=== PATIENT | female | born 1985 | race Caucasian/White ===

== ENCOUNTER 2016-12-15 14:26 | Inpatient (IN) ==
--- NOTE | 2016-12-15 15:36 | Emergency Department Note ---
Disposition Clinical Impression: Protrusion of lumbar intervertebral disc, Loss of feeling or sensation Disposition: Admitted As Inpatient Condition: Fair General Adult HPI - General Chief complaint: ED Back Pain/Injury Stated complaint: Back pain/R leg pain Time Seen by Provider: 12/15/16 15:28 Source: patient Limitations: no limitations - History of Present Illness Pain Scale: 10 - Related Data Home Medications Medication Instructions Recorded Confirmed Estradiol 2 mg PO DAILY 12/15/16 12/15/16 Ibuprofen [Motrin] 400 mg PO Q6HR PRN 12/15/16 12/15/16 Previous Rx's Medication Instructions Recorded OxyCODONE/APAP 5/325 [Percocet 1 each PO Q6HR PRN #12 tablet 12/09/16 5/325 MG] Allergies Allergy/AdvReac Type Severity Reaction Status Date / Time No Known Allergies Allergy Verified 12/15/16 14:49 Past Medical History - Past Medical History Medical history: Reports: GERD, migraine, other Psychiatric history: Reports: depression 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 - Social History Smoking Status: Never smoker Smokeless Tobacco Status: No Alcohol use: Reports: none Drug use: Reports: none Physical Exam - General Limitations: no limitations General appearance: alert Course Vital Signs Temperature 98 F 12/15/16 14:49 Pulse Rate 85 12/15/16 14:49 Respiratory Rate 20 12/15/16 14:49 Blood Pressure 143/84 12/15/16 14:49 O2 Sat by Pulse Oximetry 96 12/15/16 14:49 Temperature 98.1 F 12/15/16 19:51 Pulse Rate 74 12/15/16 19:51 Respiratory Rate 16 12/15/16 19:51 Blood Pressure 117/75 12/15/16 19:51 O2 Sat by Pulse Oximetry 97 12/15/16 19:51 Oxygen Delivery Oxygen Delivery Room Air Medical Decision Making - Lab Data Result diagrams: 12/15/16 16:12 12/15/16 16:12 Lab Results 12/15/16 12/15/16 Range/Units 16:12 16:12 WBC 12.4 H (4.3-11.1) K/mcL RBC 4.82 (3.82-4.97) M/mcL Hgb 14.0 (11.5-15.4) g/dL Hct 41.0 (35.3-44.9) % MCV 85.1 (83.0-100.0) fL MCH 29.0 (28.0-33.3) pg MCHC 34.1 (31.6-35.5) g/dL RDW 12.6 (11.5-14.5) % Plt Count 368 (140-400) K/mcL MPV 9.9 (9.4-12.4) fL Immature Gran % 0.3 (0-4) % Seg Neutrophils % 74.9 % Lymphocytes % 19.7 % Monocytes % 4.6 % Eosinophils % 0.2 % Basophils % 0.3 % Neutrophils # 9.3 H (1.6-8.9) K/mcL Lymphocytes # 2.4 (0.6-4.6) K/mcL Monocytes # 0.6 (0.0-1.3) K/mcL Eosinophils # 0.0 (0.0-0.6) K/mcL Basophils # 0.0 (0.0-0.2) K/mcL Sodium 141 (136-145) mEq/L Potassium 4.0 (3.5-4.5) mEq/L Chloride 105 (98-109) mEq/L Carbon Dioxide 22 (19-29) mEq/L BUN 9 (7-20) mg/dL Creatinine 0.75 (0.57-1.11) mg/dL Est GFR ( Amer) > 60 (> 60) Est GFR (Non-Af Amer) > 60 (> 60) BUN/Creatinine Ratio 12 (6-26) Glucose 96 (70-99) mg/dL Calculated Osmolality 291 (280-300) Calcium 9.9 (8.6-10.8) mg/dL Attestation Statement - Attestation Attestation: I examined this patient and my medical decision-making was reviewed with the Resident Physician. I agree with the documented findings, disposition and treatment plan as described except to the extent set forth below. [id number] time provided Patient seen in conjunction with Dr. Escobedo. She complains of right back and buttock pain radiating down her right lower extremity. She had an outpatient MRI 3 days ago-the transcribe results of which I have reviewed. Patient appears very uncomfortable on exam.
[2016-12-15] MEDS ORDERED: 0.9 % Sodium Chloride 1,000 ML IVC ONE (15:46)
[2016-12-15] MEDS ORDERED: Ondansetron 4 MG/2 ML VIAL IVP PRN ×2 (15:46→17:13)
[2016-12-15] MEDS ORDERED: *HR* HYDROmorphone (PF) 1 MG/ML SYRINGE IVP ONE ×2 (15:46→17:15)
[2016-12-15] MEDS ORDERED: Dexamethasone 4 MG/ML VIAL IVP PRN (15:53)
[2016-12-15] MEDS ORDERED: Ketorolac 15 MG/ML VIAL IVP ONE (15:53)
[2016-12-15] MEDS ORDERED: Ondansetron 4 MG/2 ML VIAL IVP ONE (15:55)
--- NOTE | 2016-12-15 16:01 | Emergency Department Note ---
Disposition Clinical Impression: Protrusion of lumbar intervertebral disc, Loss of feeling or sensation Disposition: Admitted As Inpatient Condition: Fair Time of Disposition: 16:03 General Adult HPI - General Chief complaint: ED Back Pain/Injury Stated complaint: Back pain/R leg pain Time Seen by Provider: 12/15/16 15:28 Source: patient Limitations: no limitations Nursing Notes Reviewed: Yes Vital Signs Reviewed: Yes - History of Present Illness HPI Narrative: Patient is a 31-year-old female brought in for weakness and pain to the right lower extremity and right hip. Patient was of lower back pain and loss of sensation to her groin area. Patient states when she wipes urine that it feels different. Patient states that she also has incontinence of urine. Pain Scale: 10 - Related Data Home Medications Medication Instructions Recorded Confirmed Estradiol 2 mg PO DAILY 12/15/16 12/15/16 Ibuprofen [Motrin] 400 mg PO Q6HR PRN 12/15/16 12/15/16 Previous Rx's Medication Instructions Recorded OxyCODONE/APAP 5/325 [Percocet 1 each PO Q6HR PRN #12 tablet 12/09/16 5/325 MG] Allergies Allergy/AdvReac Type Severity Reaction Status Date / Time No Known Allergies Allergy Verified 12/15/16 14:49 All systems ED: reviewed and negative except as stated. Review of Systems: As Per HPI Constitutional: Reports: weakness. Denies: fever, chills Eyes: Denies: vision change ENT ED: Denies: congestion Cardiovascular: Denies: chest pain, palpitations, dyspnea on exertion Respiratory: Denies: cough, dyspnea Gastrointestinal: Reports: nausea. Denies: abdominal pain, vomiting, diarrhea Genitourinary: Reports: other (Incontinence: urinary) Musculoskeletal: Reports: back pain Neurological: Reports: paresthesias (Saddle). Denies: headache, weakness Psychiatric: Reports: anxiety Endocrine: Denies: fatigue Past Medical History - Past Medical History Attestation: Yes The following information was validated with the patient. 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 Patient appears very uncomfortable and is lying leaned over to the left side to take pressure off her right side. Patient has paraspinal tenderness bilaterally along thoracic and lumbar spine. Patient has exquisite tenderness to the right gluteal region. Patient has decreased sensation below the knee on her right side. Patient has restriction of range of motion secondary to pain - General Limitations: no limitations General appearance: alert - Head Head exam: atraumatic, normocephalic, normal inspection - Eye Eye exam: Present: normal appearance, PERRL, EOMI - ENT ENT exam: normal exam, normal oropharynx, mucous membranes moist - Neck Neck exam: Present: normal inspection, full ROM, trachea midline - Chest Chest inspection: Present: normal inspection, symmetric chest wall rise - Cardiovascular Cardiovascular exam: Present: regular rate, normal rhythm, normal heart sounds - Abdominal Exam Abdominal exam: Present: soft, Non-Tender. Absent: tenderness, distention, guarding, rebound, rigidity Course - Consultations Consultation #1: Dr. Nicole was consulted and he advised to admit to medicine for pain control and he will see patient once admitted and evaluate. Time: 15:56 Vital Signs Temperature 98 F 12/15/16 14:49 Pulse Rate 85 12/15/16 14:49 Respiratory Rate 20 12/15/16 14:49 Blood Pressure 143/84 12/15/16 14:49 O2 Sat by Pulse Oximetry 96 12/15/16 14:49 Temperature 98.0 F 12/15/16 17:47 Pulse Rate 73 12/15/16 17:47 Respiratory Rate 16 12/15/16 17:47 Blood Pressure 131/80 12/15/16 17:47 O2 Sat by Pulse Oximetry 93 12/15/16 17:47 Oxygen Delivery Oxygen Delivery Room Air Medical Decision Making - [facility] Narrative Medical decision making narrative: Patient with complaints of left lower cavity weakness, pain and saddle paresthesias concerning for cauda equina. Patient has MRI on file which shows lumbar radiculopathy with foraminal stenosis. Patient states she has been having urinary incontinence as well. Spoke to Dr. Pantoja of orthopedic spine surgery who states to admit patient to medicine and he will evaluate patient once she is admitted. Patient's pain has been placed on the control with Dilaudid 1 mg 2, patient has been given Zofran for nausea. Patient understands and agrees to treatment and care. Patient agrees to admission. CBC shows WBC of 12.4 the patient is afebrile and not tachycardic or tachypneic. This may be stress induced. and BMP show no abnormalities. Patient was accepted for admission by Dr. Johnson the Hospitalist - Medical Records Medical records reviewed: Yes I reviewed the patient's medical records. MR/MR lumbar spine wo con IMPRESSION: There is a large disc protrusion toward the right at L4-5 causing stenosis of the thecal sac and narrowing of the right neural foramen greater than the left as discussed in detail above. - Lab Data Result diagrams: 12/15/16 16:12 12/15/16 16:12 Lab Results 12/15/16 12/15/16 Range/Units 16:12 16:12 WBC 12.4 H (4.3-11.1) K/mcL RBC 4.82 (3.82-4.97) M/mcL Hgb 14.0 (11.5-15.4) g/dL Hct 41.0 (35.3-44.9) % MCV 85.1 (83.0-100.0) fL MCH 29.0 (28.0-33.3) pg MCHC 34.1 (31.6-35.5) g/dL RDW 12.6 (11.5-14.5) % Plt Count 368 (140-400) K/mcL MPV 9.9 (9.4-12.4) fL Immature Gran % 0.3 (0-4) % Seg Neutrophils % 74.9 % Lymphocytes % 19.7 % Monocytes % 4.6 % Eosinophils % 0.2 % Basophils % 0.3 % Neutrophils # 9.3 H (1.6-8.9) K/mcL Lymphocytes # 2.4 (0.6-4.6) K/mcL Monocytes # 0.6 (0.0-1.3) K/mcL Eosinophils # 0.0 (0.0-0.6) K/mcL Basophils # 0.0 (0.0-0.2) K/mcL Sodium 141 (136-145) mEq/L Potassium 4.0 (3.5-4.5) mEq/L Chloride 105 (98-109) mEq/L Carbon Dioxide 22 (19-29) mEq/L BUN 9 (7-20) mg/dL Creatinine 0.75 (0.57-1.11) mg/dL Est GFR ( Amer) > 60 (> 60) Est GFR (Non-Af Amer) > 60 (> 60) BUN/Creatinine Ratio 12 (6-26) Glucose 96 (70-99) mg/dL Calculated Osmolality 291 (280-300) Calcium 9.9 (8.6-10.8) mg/dL
[2016-12-15 16:22] LABS: Basophils % 0.3 %; Eosinophils % 0.2 %; Immature Granulocytes % 0.3 % (0-4); Lymphocytes # 2.4 K/mcL (0.6-4.6); Lymphocytes % 19.7 %; Mean Corpuscular HGB Conc 34.1 g/dL (31.6-35.5); Mean Corpuscular Volume 85.1 fL (83.0-100.0); Mean Platelet Volume 9.9 fL (9.4-12.4); Monocytes # 0.6 K/mcL (0.0-1.3); Monocytes % 4.6 %; Neutrophils # 9.3 K/mcL (1.6-8.9); Platelet Count 368 K/mcL (140-400); Red Blood Count 4.82 M/mcL (3.82-4.97); Red Cell Distribution Width 12.6 % (11.5-14.5); Segmented Neutrophils % 74.9 %
[2016-12-15 16:32] LABS: BUN/Creatinine Ratio 12 (6-26); Blood Urea Nitrogen 9 mg/dL (7-20); Calcium 9.9 mg/dL (8.6-10.8); Carbon Dioxide 22 mEq/L (19-29); Chloride 105 mEq/L (98-109); Glucose 96 mg/dL (70-99); Osmolality,Calculated 291 (280-300); Sodium 141 mEq/L (136-145); eGFR For African Americans > 60 (> 60); eGFR For Non-African Americans > 60 (> 60)
[2016-12-15] MEDS ORDERED: Acetaminophen 325 MG TABLET PO PRN (17:13)
[2016-12-15] MEDS ORDERED: Naloxone 0.4 MG/ML INJ IVP PRN (17:13)
--- NOTE | 2016-12-15 17:25 | Internal Med History&Physical ---
Date of Encounter: 12/15/16 Time of Encounter: 17:23 Assessment and Plan (1) Protrusion of lumbar intervertebral disc Current visit: Yes Status: Acute Intractable back pain with residual right lower extremity weakness secondary to severe disc protrusion and narrowing of the right neural foramen more than the left. Worrisome for cord compression Urgent neurosurgery consult, nothing by mouth for possible surgical procedure Nilotinib for pain, IV fluids Protonix for GI prophylaxis and sequential compression devices for DVT prophylaxis. The patient will be admitted as inpatient, expected stay more than midnights. Full code. Time spent on this admission 40 minutes (2) Migraines Current visit: Yes Status: Acute Stable Qualifiers: Migraine type: unspecified Status migrainosus presence: without status migrainosus Intractability: not intractable Qualified Code(s): G43.909 - Migraine, unspecified, not intractable, without status migrainosus (3) Intractable back pain Current visit: Yes Status: Acute As stated above (4) Loss of feeling or sensation Current visit: Yes Status: Acute Internal Medicine - H&P: HPI Chief complaint: right leg/back pain Admitted From: Emergency Dept History of present illness: Ms. Dickinson is a 31 year old female with a past medical history migraines, depression, came to the emergency room complaining of severe right lower extremity pain and back pain that started more than a month ago. The patient has symptoms such as diminished sensitivity below the knee and abnormal sensitivity in her groin area and severe weakness due to intractable pain. Also , she says she had some urinary dribbling but no fecal incontinence. An MRI performed on December 12 showed a large disc protrusion on the right side of L4 in L5 causing stenoses of the thecal sac/narrowing of the right neural foramen more than the left. They are physician paged Dr. Pantoja who will see the patient urgently. White blood cell count is 12.4, complains of some chills and nausea. Received Dilaudid and has been taking Percocet at home but partially control her pain up until today. Past Med Surg Social Fam HX - Past Medical History Medical history: GERD, migraine, other ( depression) Psychiatric history: depression - Past Surgical History Surgical History: other (Breast reduction) - Social History Smoking Status: Never smoker Smokeless Tobacco Status: No Alcohol use: none Drug use: none - Additional Family History Additional family history: Maternal grandfather with diabetes, maternal grandmother with ovarian cancer Internal Medicine - H&P: Meds OxyCODONE/APAP 5/325 [Percocet 5/325 MG] 1 each PO Q6HR PRN #12 tablet 12/09/16 [Rx] Estradiol 2 mg PO DAILY 12/15/16 [History] Ibuprofen [Motrin] 400 mg PO Q6HR PRN 12/15/16 [History] 3 Allergy/AdvReac Type Severity Reaction Status Date / Time No Known Allergies Allergy Verified 12/15/16 14:49 All Systems PM: A 10-system review of systems was performed and is negative for pertinent findings except as documented above in the HPI. Review of systems: Complains of chills and nausea, severe right lower extremity pain and some weakness, other systems out of the 10 reviewed were negative - Constitutional Vitals: Temp Pulse Resp BP Pulse Ox 98 F 90 18 129/80 96 12/15/16 14:49 12/15/16 16:05 12/15/16 17:14 12/15/16 17:14 12/15/16 16:05 General appearance: Present: A&O X 3 - Head Head exam: Present: atraumatic, normocephalic - Eye Eye exam: Present: PERRL, conjuntiva pink, sclera anicteric Pupils: Present: PERRL - Neck Neck exam general surgery: Present: supple, trachea midline. Absent: lymphadenopathy - Respiratory Respiratory exam: Present: CTAB. Absent: accessory muscle use, rales, rhonchi, wheezes - Cardiovascular Cardiovascular exam: Present: RRR, +S1, +S2. Absent: diastolic murmur, gallop, rubs, systolic murmur - GI/Abdominal GI/Abdominal exam: Present: normal bowel sounds, soft, no peritoneal signs. Absent: distended, tenderness - Extremities Exam Extremities exam: Present: warm, radial pulses palpable and symmetrical. Absent : calf tenderness, cyanotic, pedal edema - Neurological Exam Neurological exam: Present: CN II-XII intact, oriented X3, no focal deficits. Absent: pronater drift, facial droop, speech deficit - Skin Skin exam: Present: dry, intact Additional comments: Positive straight leg test, weakness evidence on the right lower extremity, lumbar tenderness Internal Med - H&P Results - Labs CBC & Chem 7: 12/15/16 16:12 12/15/16 16:12
[2016-12-15] MEDS: *HR* HYDROmorphone (PF) 1 MG/ML SYRINGE IVP PRN (21:30)
[2016-12-15] MEDS: Ketorolac 30 MG/ML VIAL IVP PRN (23:40)
[2016-12-16] MEDS: *HR* HYDROmorphone (PF) 1 MG/ML SYRINGE IVP PRN ×4 (00:32→10:19)
[2016-12-16] MEDS: 0.9 % Sodium Chloride 1,000 ML IVC SCH ×2 (03:51→03:59)
[2016-12-16 05:28] LABS: Hematocrit 37.2 % (35.3-44.9); Hemoglobin 12.6 g/dL (11.5-15.4); Mean Corpuscular HGB Conc 33.9 g/dL (31.6-35.5); Mean Corpuscular Hemoglobin 29.4 pg (28.0-33.3); Mean Corpuscular Volume 86.9 fL (83.0-100.0); Mean Platelet Volume 9.7 fL (9.4-12.4); Platelet Count 308 K/mcL (140-400); Red Blood Count 4.28 M/mcL (3.82-4.97); Red Cell Distribution Width 12.5 % (11.5-14.5)
--- NOTE | 2016-12-16 07:54 | Internal Med Progress Note ---
Date of Encounter: 12/16/16 Time of Encounter: 07:53 - Assessment and plan (1) Protrusion of lumbar intervertebral disc Current Visit: Yes Status: Acute Assessment and plan: Intractable back pain with residual right lower extremity weakness secondary to severe disc protrusion and narrowing of the right neural foramen more than the left. Worrisome for cord compression neurosurgery consult, nothing by mouth for possible surgical procedure today Dilaudid and Toradol for pain, IV fluids (2) Migraines Current Visit: Yes Status: Acute Assessment and plan: Stable Qualifiers: Migraine type: unspecified Status migrainosus presence: without status migrainosus Intractability: not intractable Qualified Code(s): G43.909 - Migraine, unspecified, not intractable, without status migrainosus (3) Intractable back pain Current Visit: Yes Status: Acute (4) Loss of feeling or sensation Current Visit: Yes Status: Acute - Subjective Interval history: Lumbar pain and right lower extremity numbness persists. Denies any chest pain , no shortness of breath, no abdominal pain. No dysuria, mild nausea - Constitutional Vitals: Temp Pulse Resp BP Pulse Ox 97.6 F 57 16 117/70 98 12/16/16 07:06 12/16/16 07:06 12/16/16 07:06 12/16/16 07:06 12/16/16 07:06 General appearance: Present: A&O X 3 Exam: - Head Head exam: Present: atraumatic, normocephalic - Eye Eye exam: Present: PERRL, conjuntiva pink, sclera anicteric Pupils: Present: PERRL - Neck Neck exam general surgery: Present: supple, trachea midline. Absent: lymphadenopathy - Respiratory Respiratory exam: Present: CTAB. Absent: accessory muscle use, rales, rhonchi, wheezes - Cardiovascular Cardiovascular exam: Present: RRR, +S1, +S2. Absent: diastolic murmur, gallop, rubs, systolic murmur - GI/Abdominal GI/Abdominal exam: Present: normal bowel sounds, soft, no peritoneal signs. Absent: distended, tenderness - Extremities Exam Extremities exam: Present: warm, radial pulses palpable and symmetrical. Absent : calf tenderness, cyanotic, pedal edema - Neurological Exam Neurological exam: Present: CN II-XII intact, oriented X3, no focal deficits. Absent: pronater drift, facial droop, speech deficit - Skin Skin exam: Present: dry, intact Additional comments: Positive straight leg test, weakness evidence on the right lower extremity, lumbar tenderness Internal Medicine: Result - Labs CBC & Chem 7: 12/16/16 05:14 12/15/16 16:12 Labs: Short CBC 12/16/16 Range/Units 05:14 WBC 11.0 (4.3-11.1) K/mcL Hgb 12.6 (11.5-15.4) g/dL Hct 37.2 (35.3-44.9) % Plt Count 308 (140-400) K/mcL Consult Discharge Plan - Plan Referrals: NONE,PCP [Primary Care Provider] -
[2016-12-16] MEDS ORDERED: Pantoprazole 40 MG VIAL IVP SCH (09:00)
[2016-12-16] MEDS ORDERED: CeFAZolin Pre 2,000 MG/100 ML 2,000 MG/100 ML BAG IVPB ONE ×2 (09:00→12:00)
[2016-12-16] MEDS: Ketorolac 30 MG/ML VIAL IVP PRN (09:13)
[2016-12-16] MEDS ORDERED: *HR* HYDROmorphone (PF) 1 MG/ML SYRINGE IVP ONE (10:16)
--- NOTE | 2016-12-16 10:32 | Spinal Consult Note ---
Date of Encounter: 12/16/16 Time of Encounter: 10:30 Assessment and Plan (1) Lumbar disc herniation with radiculopathy Current Visit: Yes Status: Acute On exam she is in significant this distress and is flexed forward and chair complaining of severe pain with attempts at straightening her back. Afebrile vital signs stable. She has a positive straight leg raise on the right. She has weakness with right foot dorsiflexion and plantar flexion. She has a list to the left. Her hips move symmetrically. MRI of the lumbar spine dated 12/12/2016 reveals a very large right paracentral disc extrusion at L4-L5. This is causing significant stenosis and displacement of the traversing nerve root. Impression: 1) Lumbar disc herniation with radiculopathy 2) focal motor deficit Plan: Due to her severe disability and concerning weakness with possible worsening or permanent neurologic injury I find it reasonable to consider surgery in the form of a microdiscectomy L4-L5 right. Risks benefits possible competitions alternatives were fully discussed with the patient and the patient would like to proceed. The patient will proceed with medical optimization and clearance measures per the hospitalist service. (2) Focal motor deficit Current Visit: Yes Status: Acute History of Present Illness Chief complaint: Severe right leg pain HPI: Ms. Dickinson is a 31 year old female Complains of several week history of right lower extremity leg pain which is worsened significantly in the past 48 hours. She says the pain is severe and making it difficult to ambulate. She rates the pain as a 10 on a pain scale. There is some associated numbness in the right buttock as well as some paresthesias and numbness in the right lower extremity. She denies bowel or bladder symptomatology. She denies fevers or chills. Past Med Surg Social Fam HX - Past Medical History Medical history: GERD, migraine, other Psychiatric history: depression - Past Surgical History Surgical History: breast surgery, hysterectomy - Social History Smoking Status: Never smoker Smokeless Tobacco Status: No Alcohol use: none Drug use: none - Family History Mother Hx Family Respiratory Disorders: Yes (obstructive airway disease) Medications and Allergies OxyCODONE/APAP 5/325 [Percocet 5/325 MG] 1 each PO Q6HR PRN #12 tablet 12/09/16 [Rx] Estradiol 2 mg PO DAILY 12/15/16 [History] Ibuprofen [Motrin] 400 mg PO Q6HR PRN 12/15/16 [History] 3 Allergy/AdvReac Type Severity Reaction Status Date / Time No Known Allergies Allergy Verified 12/15/16 14:49 Results - Labs Result Diagrams: 12/16/16 05:14 12/15/16 16:12 Labs: Abnormal lab results Neutrophils # 9.3 K/mcL (1.6-8.9) H 12/15/16 16:12 B-Natriuretic Peptide 104 pg/mL (0-100) H 12/16/16 05:14 H & H 12/16/16 Range/Units 05:14 Hgb 12.6 (11.5-15.4) g/dL Hct 37.2 (35.3-44.9) % All other labs normal. Consult Discharge Plan - Plan Referrals: NONE,PCP [Primary Care Provider] -
[2016-12-16] MEDS ORDERED: *HR* FentaNYL (PF) 100 MCG/2 ML VIAL ONE (11:51)
[2016-12-16] MEDS ORDERED: *HR* Midazolam HCl 2 MG/2 ML VIAL ONE (11:51)
[2016-12-16] MEDS ORDERED: *HR* Propofol 200 MG/20 ML VIAL IVP ONE (11:51)
[2016-12-16] MEDS ORDERED: *HR* HYDROmorphone (PF) 1 MG/ML SYRINGE IVP PRN (11:58)
[2016-12-16] MEDS ORDERED: Ondansetron 4 MG/2 ML VIAL IVP PRN ×2 (11:58→15:53)
[2016-12-16] MEDS ORDERED: ceFAZolin 2,000 MG in D5% in Water 100 ML IVPB ONE (12:00)
--- NOTE | 2016-12-16 12:06 | Anesthesia Evaluation PreOp ---
Date of Encounter: 12/16/16 Time of Encounter: 12:04 - Past History Planned Operation: Right Microdiscectomy L4-5 Cardiac History: Denies any Significant Hx Pulmonary History: Denies Any Significant HX TELEMETRY REGISTERED NURSE History: Other (Migraines) Other Medical History: Denies Any Significant HX Anesthesia History: No Prior Anesthetic Complications, Past Anesthesia (VENANCIO) : No Test: Negative (12/16/2016) Alcohol Use: none Drug use: none Medications and Allergies OxyCODONE/APAP 5/325 [Percocet 5/325 MG] 1 each PO Q6HR PRN #12 tablet 12/09/16 [Rx] Estradiol 2 mg PO DAILY 12/15/16 [History] Ibuprofen [Motrin] 400 mg PO Q6HR PRN 12/15/16 [History] 3 Allergy/AdvReac Type Severity Reaction Status Date / Time No Known Allergies Allergy Verified 12/15/16 14:49 - Meds/Allergy Pre-op Review Medications Reviewed: Yes Allergies Reviewed: Yes Beta Blockers on Current Med List: No Anesthesia Results - Labs 12/16/16 05:14 12/15/16 16:12 Laboratory Tests 12/16/16 11:40 Serum , Qual Negative Anesthesia Exam Vital Signs/O2 Sat, Most Current O2 Sat Height 1.8 m Weight 102.56 kg Weight 102.058 kg O2 Sat by Pulse Oximetry 100 O2 Sat by Pulse Oximetry 98 O2 Sat by Pulse Oximetry 98 O2 Sat by Pulse Oximetry 98 O2 Sat by Pulse Oximetry 97 O2 Sat by Pulse Oximetry 93 O2 Sat by Pulse Oximetry 96 O2 Sat by Pulse Oximetry 96 Vital Signs Temp Pulse Resp BP Pulse Ox 98 F 85 20 143/84 96 12/15/16 14:49 12/15/16 14:49 12/15/16 14:49 12/15/16 14:49 12/15/16 14:49 Vital Signs/O2 Sat, Most Current Temp Pulse Resp BP Pulse Ox 97.3 F L 66 16 115/73 100 12/16/16 11:39 12/16/16 11:39 12/16/16 11:39 12/16/16 11:39 12/16/16 11:39 Height: 5'11'' Weight: 226# NPO (# of Hours): > 8 hrs Pain Scale: 0 Pain Scale Used: Numeric (1 - 10) - HEENT Pupil (Motor): Pupils equal, EOMI Mallampati: II Teeth: Normal Oral Opening: Greater than 3 - TELEMETRY REGISTERED NURSE LOC: Oriented TELEMETRY REGISTERED NURSE Motor: Normal RUE, Normal LUE, Normal RLE, Normal LLE, Normal Face TELEMETRY REGISTERED NURSE Sensory: Normal: RUE, LUE, RLE, LLE, Face - Cardiac Rhythm: Regular Murmur: None JVD: No Carotid Bruit: No - Pulmonary Breath Sounds: bilateral Clear Respiratory Effort: Symmetrical Anesthesia Assess/Plan ASA Score: 2 Modified Eden Scale for Level of Consciousness: Cooperative, oriented, and tranquil Anesthetic Plan: General Autologous Blood: Yes Monitoring Plan: Standard Monitors Recovery Plan: PACU
[2016-12-16] MEDS ORDERED: *HR* Succinylcholine 200 MG/10 ML VIAL IVP ONE (13:17)
[2016-12-16] MEDS ORDERED: Lidocaine -MPF 2% 2 ML VIAL ONE (13:17)
[2016-12-16] MEDS ORDERED: Dexamethasone 4 MG/ML VIAL ONE (14:27)
[2016-12-16] MEDS ORDERED: Ketorolac 30 MG/ML VIAL ONE (14:27)
[2016-12-16] MEDS ORDERED: Ondansetron 4 MG/2 ML VIAL ONE (14:27)
--- NOTE | 2016-12-16 14:40 | Orthopedic Operative Note ---
Date of procedure: 12/16/16 Pre-op diagnosis: Lumbar disc herniation, lumbar radiculopathy, focal motor deficit Post-op diagnosis: same Operation/Findings: Microdiscectomy L4-5 right:The patient was brought to the operative theater and was successfully administered general endotracheal intubation. She was given an antibiotic prior to the start of the procedure. Compression boots and stockings were used for deep vein thrombosis prophylaxis. The patient was turned prone on a Reynold table. The back was prepped and draped in the usual sterile fashion. Incision was marked and centered over the involved L4-L5 interspace in the midline. We used Bovie cautery to enter the lumbar fashion down the involved right side at the L4-L5 level. We reflected the paraspinal musculature to the lateral extent of the right L4-L5 facet joint. We placed and secured at Andreina retractor outside the right L4-L5 facet joint. We dislodge the ligamentum flavum on the involved right side from its origin on the undersurface of the L4 lamina. We then removed the ligamentum which allowed us to visualize the thecal sac, epidural fat and traversing nerve root. We medialized the traversing nerve root with a dural retractor and identified the L4-L5 disc space. We used a retractor to protect the neural elements, and then removed extruded L4-L5 disc material and sent it for pathologic evaluation. We decompressed the lateral recess as well as performed distal foraminotomy to allow room for the nerve root. The nerve root had good excursion and could be moved medially and laterally a least 1cm. We then copiously irrigated the wound and closed the wound with layers including 1 Vicryl for fascia 2-0 Vicryl for the subcutaneous tissue and Dermabond was used for skin closure. Sterile dressings were placed over the wound, the patient was transferred supine in the hospital bed and extubated. All sponge instrument and needle counts correct at the end procedure. Anesthesia: GETA Surgeon: Ajit Pantoja Jr Estimated blood loss (cc): 6 Specimen: L4-L5 disc material Condition: stable Disposition: PACU
[2016-12-16] MEDS ORDERED: Acetaminophen IV 1,000 MG/100 ML INFUS..BTL IVPB ONE (15:15)
--- NOTE | 2016-12-16 15:27 | Anesthesia Evaluation Post Op ---
Date of Encounter: 12/16/16 Time of Encounter: 15:26 - Vital Signs Vital Signs: Vital Signs/O2 Sat/Glucose, Most Recent Temp Pulse Resp BP Pulse Ox 97.2 F L 60 12 98/58 98 12/16/16 14:55 12/16/16 15:05 12/16/16 15:05 12/16/16 15:05 12/16/16 15:05 Blood Glucose* 72 - Lungs Lungs: Clear Ascult./Percussion - Airway Airway: Non-obstructed - Cardiovascular Regular Rate - Mental Status Mental Status: Alert & Oriented, Answers Appropriately - Pain Pain Scale: 0 Pain Scale used: Numeric (1 - 10) - Nausea Vomiting Nausea Vomiting: Not Present - Hydration Hydration: NPO - Discharge PostOp Status: Transfer Patient to floor
[2016-12-16] MEDS ORDERED: Ibuprofen 400 MG TABLET PO PRN (15:53)
[2016-12-16] MEDS ORDERED: *HR* Morphine 2 MG/ML SYRINGE IVP PRN (15:53)
[2016-12-16] MEDS ORDERED: Naloxone 0.4 MG/ML INJ IVP PRN (15:53)
[2016-12-16] MEDS ORDERED: *HR* OxyCODONE Immed Rel 5 MG TABLET PO PRN (15:53)
[2016-12-16] MEDS: ceFAZolin 2,000 MG in D5% in Water 100 ML IVPB SCH ×2 (17:46→23:47)
[2016-12-16] MEDS ORDERED: Ringers Solution, Lactated 1,000 ML IVC SCH (18:30)
[2016-12-16] MEDS: *HR* OxyCODONE Immed Rel 5 MG TABLET PO PRN (22:32)
[2016-12-17] MEDS: *HR* OxyCODONE Immed Rel 5 MG TABLET PO PRN (05:55)
[2016-12-17 07:30] VITALS: BP 106/70
--- NOTE | 2016-12-17 08:02 | Discharge Summary ---
Date of Encounter: 12/17/16 Time of Encounter: 07:59 - Discharge Diagnosis (1) Lumbar disc herniation with radiculopathy Priority: Primary Status: Acute Comments: s/p right Microdiscectomy L4-5 Intractable back pain with residual right lower extremity weakness secondary to severe disc protrusion and narrowing of the right neural foramen more than the left. (2) Protrusion of lumbar intervertebral disc Priority: Primary Status: Acute (3) Migraines Priority: Secondary Status: Acute Qualifiers: Migraine type: unspecified Status migrainosus presence: without status migrainosus Intractability: not intractable Qualified Code(s): G43.909 - Migraine, unspecified, not intractable, without status migrainosus (4) Intractable back pain Priority: Primary Status: Acute (5) Loss of feeling or sensation Priority: Primary Status: Acute (6) Focal motor deficit Priority: Primary Status: Acute - Discharge Medications Prescriptions: OxyCODONE Immed Rel [Roxicodone 5 MG] 5 mg PO Q4HR PRN #25 tablet PRN Reason: Severe Pain Home Medications: Estradiol 2 mg PO DAILY 12/15/16 [History] Ibuprofen [Motrin] 400 mg PO Q6HR PRN 12/15/16 [History] OxyCODONE Immed Rel [Roxicodone 5 MG] 5 mg PO Q4HR PRN #25 tablet 12/17/16 [Rx] Allergies/Adverse Reactions: 3 Allergy/AdvReac Type Severity Reaction Status Date / Time No Known Allergies Allergy Verified 12/15/16 14:49 Date of admission: 12/15/16 17:13 Primary care physician: PCP NONE Consults: 12/16/16 15:53 Consult to Nurse Navigator [CONS] Routine Comment: spine navigator Consult to Occupational Therapy [CONS] Routine Comment: Evaluate, develop and implement POC Reason for Consult: Postoperative rehabilitation Consult to Physical Therapy [CONS] Routine Comment: Evaluate, develop and implement POC Reason for Consult: Postoperative rehabilitation - Patient Status Disposition: Home, Self-Care Condition: Fair - Discharge Instructions Follow Up With: NONE,PCP [Primary Care Provider] - Additional Instructions: Follow-up with a primary care physician within the next 2 weeks. Continue oxycodone for pain, may follow up with Dr. Pantoja as needed. - Diet and Activity Activity: increase activity as tolerated Diet: regular diet Hospital course: Ms. Dickinson is a 31 year old female with a past medical history migraines, depression, came to the emergency room complaining of severe right lower extremity pain and back pain that started more than a month ago. The patient had symptoms such as diminished sensitivity below the right knee, abnormal sensitivity in her groin area and severe weakness due to intractable pain. Also, she said she had some urinary dribbling but no fecal incontinence. An MRI performed on December 12 showed a large disc protrusion on the right side of L4 in L5 causing stenoses of the thecal sac/narrowing of the right neural foramen more than the left. Underwent on 12/16/16 a right microdiscectomy at L4-L5 performed by Dr. Pantoja the results of her symptoms completely. The patient is stable to be discharged today - Time Spent with Patient Total time spent providing and/or coordinating discharge services: Greater than 30 minutes (40 min) - Constitutional Vitals: Temp Pulse Resp BP Pulse Ox 97.5 F L 72 14 106/70 98 12/17/16 07:28 12/17/16 07:28 12/17/16 07:28 12/17/16 07:28 12/17/16 07:28 General appearance: Present: A&O X 3 - Head Head exam: Present: atraumatic, normocephalic - Eye Eye exam: Present: PERRL, conjuntiva pink, sclera anicteric Pupils: Present: PERRL - Neck Neck exam general surgery: Present: supple, trachea midline. Absent: lymphadenopathy - Respiratory Respiratory exam: Present: CTAB. Absent: accessory muscle use, rales, rhonchi, wheezes - Cardiovascular Cardiovascular exam: Present: RRR, +S1, +S2. Absent: diastolic murmur, gallop, rubs, systolic murmur - GI/Abdominal GI/Abdominal exam: Present: normal bowel sounds, soft, no peritoneal signs. Absent: distended, tenderness - Extremities Exam Extremities exam: Present: warm, radial pulses palpable and symmetrical. Absent : calf tenderness, cyanotic, pedal edema - Neurological Exam Neurological exam: Present: CN II-XII intact, oriented X3, no focal deficits. Absent: pronater drift, facial droop, speech deficit - Skin Skin exam: Present: dry, intact - VTE Documentation of Mechanical Device: Intermittent pneumatic compression device
--- NOTE | 2016-12-17 08:26 | Orthopedics Progress Note ---
Date of Encounter: 12/17/16 Time of Encounter: 08:24 Subjective Interval history: S: Patient doing well this morning. Mild postoperative incisional pain though her leg feels much better. She has been up and walking and has gone to the bathroom. O: Afebrile and her vital signs are stable Back dressing is clean, dry, and intact. She is neurovascularly intact to the bilateral lower extremities A: Post L4/L5 microdiscectomy P: Continue to mobilize Pain well controlled Anticipate discharge today Follow-up with Dr. Pantoja or physician business assistant in the office Objective Vital signs: Vital Signs Temp Pulse Resp BP Pulse Ox 12/17/16 07:28 97.5 F L 72 14 106/70 98 12/17/16 04:17 97.7 F 79 16 105/69 96 12/16/16 23:24 98.6 F 71 15 106/71 97 12/16/16 18:39 98.2 F 96 16 120/76 98 12/16/16 17:53 97.5 F L 95 16 121/79 96 12/16/16 17:09 98.0 F 75 12 117/72 96 12/16/16 16:43 98 F 67 16 116/66 97 12/16/16 16:41 98 F 67 16 116/66 97 12/16/16 15:51 97.5 F L 71 16 111/76 96 12/16/16 15:35 97.8 F 66 14 102/59 97 12/16/16 15:25 97.8 F 67 15 103/58 97 12/16/16 15:15 70 14 112/68 98 12/16/16 15:05 60 12 98/58 98 12/16/16 14:55 97.2 F L 61 14 99/64 100 12/16/16 11:39 97.3 F L 66 16 115/73 100 Intake and Output 12/16/16 12/17/16 12/17/16 23:59 07:59 15:59 Intake Total 460 / 460 220 / 220 Output Total 400 / 400 Balance 60 / 60 220 / 220 Intake: IV Fluids 100 / 100 100 / 100 Ancef 2,000 MG In Dextrose 5% 100 / 100 100 / 100 100 ML @ 200 mls/hr IVPB Q8H LAW Rx#:[id number] Oral 360 / 360 120 / 120 Output: Urine 400 / 400 Other: # Voids 2 1 Weight 105 kg - Labs CBC & BMP: 12/16/16 05:14 12/15/16 16:12 Labs: Abnormal lab results Neutrophils # 9.3 K/mcL (1.6-8.9) H 12/15/16 16:12 B-Natriuretic Peptide 104 pg/mL (0-100) H 12/16/16 05:14 - VTE Documentation of Mechanical Device: Intermittent pneumatic compression device Consult Discharge Plan - Plan Additional Instructions: Discharge Instructions: Lumbar Please call [facility] ([phone]), your Primary Care Physician, or report to the ER if you have any of the following symptoms: Fever greater that 101.5, increased pain/redness/drainage/odor for your incision site or any other concerning symptoms. ACTIVITY * May Shower * No Tub Baths * No lifting greater than 10 pounds * No Smoking * No Swimming * No off Ground Activities (Running, Climbing, Ladders, Horseback Riding) * No Driving * Wear Back Brace when up walking if lumbar fusion done MEDICATIONS: Upon discharge resume your home medications. Take all the medications as prescribed. Take a stool softener if taking narcotic pain medications. Stool softeners are only effective if you drink enough fluids. Drink 6-8 glass of water or fluids a day, unless this is not allowed for another health problem. Despite using stool softeners, if you haven't had a bowel movement in 3 days, please switch to a gentle laxative. Gentle laxatives are sold over the counter. You should have a bowel movement within 24 hours, if not call the office. You will be discharged from the hospital with a prescription for pain medication. You are encouraged to decrease the use of narcotic pain medication as tolerated. Should you require a refill, please call the office. It is best to call 48-72 hours in advance of needing a prescription refill so you don't run out of medication. WOUND CARE: Remove Dressing Tomorrow. Leave incision open to air. Pat dry when you get out of the shower. FOLLOW-UP: Please follow up with your surgeon in the orthopedic clinic in 2 weeks from the day of surgery. References: [employer] (www.[email or web address].org) Referrals: Ajit Pantoja Jr, MD [Partnered Physician] - 12/27/16 11:00 am NONE,PCP [Primary Care Provider] - Prescriptions: OxyCODONE Immed Rel [Roxicodone 5 MG] 5 mg PO Q4HR PRN #25 tablet PRN Reason: Severe Pain
== END 2016-12-17 12:21 | disposition home or self-care (01) | DRG 520 ==
LOC: EMEROO 14:26 → 3NENU 14:26 → SUATTDRO 17:13 → 3NENU 17:21
PROVIDERS: ADMIT Internal Medicine; ATTEND Internal Medicine